=== PATIENT | female | born 1965 | race Two or more races ===

== ENCOUNTER 2018-11-15 08:21 | Inpatient (IN) | payer MEDICAID ==
--- NOTE | 2018-11-09 22:00 | Pre-op HX & Phy Repo 2 SIG ---
DATE OF ADMISSION: 11/15/2018 HISTORY OF PRESENT ILLNESS: The patient is a 53-year-old female in overall good health who presented with left nipple and breast pain. Mammogram revealed a 10 cm span of suspicious calcification starting right behind the nipple-areolar complex extending to the left axilla. Ultrasound revealed a retroareolar dilated duct on the left side. Core biopsy of the left breast upper outer quadrant posteriorly revealed extensive ductal carcinoma in situ. Core biopsy of the left breast retroareolar abnormality also revealed ductal carcinoma in situ. The patient has no prior history of breast disease. No family history of breast cancer. The patient underwent MRI of both breasts with gadolinium and in the left breast, there were 2 breast abnormalities. First, there was diffuse ductal carcinoma in situ at least an 8 cm span from the upper inner quadrant extending to the upper outer quadrant and extending to the nipple. Second, there is a 2.5 cm mass retroareolar likely invasive carcinoma just medial to the core biopsy site that revealed only ductal carcinoma in situ. In addition, enlarged abnormal left axillary lymph nodes were identified. The right breast revealed a small fibroadenoma and a possible sebaceous cyst. After complete discussion, decision has been made to perform left modified radical mastectomy. PAST MEDICAL HISTORY/MEDICATIONS: None. ALLERGIES: Penicillin. OPERATIONS: section and appendectomy. REVIEW OF SYSTEMS: 4, para 4, menopausal since 2008. PHYSICAL EXAMINATION: GENERAL: The patient is 5 feet 2 inches, 121 pounds. HEENT: Within normal limits. LUNGS: Clear. HEART: Regular rhythm. BREASTS: Moderate in size and ptotic. There is no palpable mass on either breast. There is no palpable axillary or supraclavicular lymphadenopathy. ABDOMEN: Soft. PELVIC AND RECTAL: Per primary care. EXTREMITIES: Without edema. NEUROLOGIC: Physiologic. IMPRESSION: 1. Extensive ductal carcinoma in situ, left breast extending from upper inner quadrant to retroareolar extending to the nipple into the upper outer quadrant extending to the axillary tail. 2. Probable invasive carcinoma medial to prior biopsy site 2.5 cm mass retroareolar, left breast. PLAN: Full discussion has been had with the patient regarding the nature of her condition, the nature of the surgery, indications, alternatives, options, and risks including bleeding, infection, injury to adjacent structures or organs, scarring, ischemia of flaps, neuritis or neuralgia, need for drains, need for additional treatment, which could be surgical, chemotherapy, radiation or hormonal blockade or some combination based on final pathology, and there is always the potential for delayed reconstruction. All questions have been answered. The patient understands and agrees to proceed. Sylvester Garvin M.D. DR: JOSÉ MANUEL JOB#: [id number] CC:
[2018-11-15] VITALS (13 sets, daily range): BP systolic 90–165; BP diastolic 49–76
[~2018-11-15] VITALS: Ht 162.6 cm; Wt 54.7 kg
[2018-11-15] MEDS ORDERED: BLOOD PRESSURE PO (09:04)
[2018-11-15] MEDS ORDERED: METFORMIN HCL1000 M1 ORAL (09:04)
--- NOTE | 2018-11-15 09:35 | NUR ---
IV LR WAS STARTED BY FLORES ESPITIA RN. NO S/S OF INFILTRATION.
[2018-11-15] MEDS ORDERED: Bupivacaine 0.5% Inj 30 ml vial INJ ONE (09:40)
[2018-11-15] MEDS ORDERED: Bacitracin 50000 Units Vial ONE (09:40)
[2018-11-15] MEDS ORDERED: Lidocaine 1% 10mg/ml/Epi 0.005mg/ml 30ml vial INJ ONE (09:40)
[2018-11-15] MEDS ORDERED: Bupivacaine w/Epi 0.5% 30ml Vial INJ ONE (09:40)
[2018-11-15] MEDS ORDERED: LR 1000ml 1,000 ML IVLG SCH (10:28)
[2018-11-15] MEDS ORDERED: DiphenhydrAMINE 50mg/ml Inj IVP PRN (10:30)
[2018-11-15] MEDS ORDERED: oxyCODONE HCL/Acetaminophen 5/325mg ORAL PRN (10:30)
[2018-11-15] MEDS ORDERED: Atropine Sulfate 0.4mg/ml inj IVP PRN (10:30)
[2018-11-15] MEDS ORDERED: HYDROcodone/Acetamin 7.5/325 tab ORAL PRN (10:30)
[2018-11-15] MEDS ORDERED: Meperidine 50mg/ml Inj(FOR RIGORS ONLY) IVP PRN (10:30)
[2018-11-15] MEDS ORDERED: Ketorolac 30mg Inj IV PRN ×2 (10:30)
[2018-11-15] MEDS ORDERED: Midazolam 2mg/2ml Inj IVP PRN (10:30)
[2018-11-15] MEDS ORDERED: Hydromorphone 0.5mg/0.5ml inj IVP PRN (10:30)
[2018-11-15] MEDS ORDERED: LORazepam Inj 2mg/ml 1ml IV PRN (10:30)
[2018-11-15] MEDS ORDERED: HYDROcodone/Acetamin 5/325 tab ORAL PRN (10:30)
[2018-11-15] MEDS ORDERED: fentaNYL 100 mcg/2 mL IV PRN (10:30)
[2018-11-15] MEDS ORDERED: Labetalol 5mg/ml 20ml vial IV PRN (10:30)
[2018-11-15] MEDS ORDERED: Metoclopramide 10mg/2ml Inj IVP PRN (10:30)
[2018-11-15] MEDS ORDERED: NS Irrig 1000ml IRRIG ONE ×2 (10:32→12:16)
[2018-11-15] MEDS ORDERED: Propofol 200mg/20ml IV ONE (10:35)
[2018-11-15] MEDS ORDERED: Lidocaine 1% MPF 10mg/ml 5ml ONE ×2 (10:35→13:05)
[2018-11-15] MEDS ORDERED: fentaNYL 100 mcg/2 mL IV ONE (10:36)
[2018-11-15] MEDS ORDERED: Midazolam 2mg/2ml Inj ONE (10:36)
--- NOTE | 2018-11-15 10:36 | Anethesia Preoperative Eval ---
Anesthesia Pre-op PMH/ROS General Date of Evaluation: Nov 15, 2018 Time of Evaluation: 11:56 Anesthesiologist: Nahid ASA Score: ASA 3 Mallampati Score Class I : Soft palate, uvula, fauces, pillars visible Class II: Soft palate, uvula, fauces visible Class III: Soft palate, base of uvula visible Class IV: Only hard plate visible Mallampati Classification: Class II Surgeon: Virgie Diagnosis: Breast CA Surgical Procedure: L Modified Radical Mastectomy Anesthesia History: none Family History: no anesthesia problems Allergies: Coded Allergies: PENICILLINS (Verified Allergy, Unknown, 11/14/18) Medications: see eMAR Patient NPO?: Yes NPO Date: Nov 14, 2018 NPO Time: 2330 Past Medical History Cardiovascular: Reports: HTN Gastrointestinal/Genitourinary: Reports: GERD Endocrine: Reports: DM PSxH Narrative: Appendectomy Anesthesia Pre-op Phys. Exam Physician Exam Last Vital Signs Date Time Temp Pulse Resp B/P (MAP) Pulse Ox O2 Delivery O2 Flow Rate FiO2 11/15/18 09:51 97.4 71 20 164/76 (105) 99 11/15/18 09:05 Room Air Constitutional: NAD Neurologic: CN 2-12 intact Cardiovascular: RRR Respiratory: CTA Gastrointestinal: S/NT/ND Airway Exam Mallampati Score: Class II MO: limited ROM: limited Teeth: missing, intact Anesthesia Pre-op A/P Risk Assessment & Plan Assessment: ASA 3 Plan: GA, SED Status Change Before Surgery: No Pre-Antibiotics Dru Gram Ancef, 500 mg Levofloxacin IV Given Within 1 Hr of Incision: Yes Time Given: 12:11 Stefan Whitfield MD Nov 15, 2018 10:36
[2018-11-15] MEDS ORDERED: Insulin Human Regular 100units/ml 3ml IV SCH (11:15)
--- NOTE | 2018-11-15 12:11 | Pre-Procedure Note/Attestation ---
Pre-Procedure Note/Attestation Complete Prior to Procedure Planned Procedure: left Procedure Narrative: left modified radical mastectomy Indications for Procedure Pre-Operative Diagnosis: extensive DCIS left breast Attestation I attest that I discussed the nature of the procedure; its benefits; risks and complications; and alternatives (and the risks and benefits of such alternatives ), prior to the procedure, with the patient (or the patient's legal passenger relations representative). I attest that, if there was a reasonable possibility of needing a blood transfusion, the patient (or the patient's legal passenger relations representative) was given the [facility] standardized written summary, pursuant to the Hernán Cory Blood Safety Act ([place] Health and Safety Code # 1645, as amended). I attest that I re-evaluated the patient just prior to the surgery and that there has been no change in the patient's H&P, except as documented below: patient now states she takes Metformin and always has elevated blood sugar Sylvester Garvin MD Nov 15, 2018 12:11
--- NOTE | 2018-11-15 12:40 | Immediate Post-Op Evaluation ---
Immediate Post-Op Evalulation Immediate Post-Op Evalulation Procedure: L Modified Radical Mastectomy Date of Evaluation: Nov 15, 2018 Time of Evaluation: 14:26 IV Fluids: 800 LR Blood Products: 0 Estimated Blood Loss: 25 Urinary Output: 0 Blood Pressure Systolic: 90 Blood Pressure Diastolic: 49 Pulse Rate: 54 Respiratory Rate: 16 O2 Sat by Pulse Oximetry: 100 Temperature (Fahrenheit): 97 Pain Score (1-10): 2 Nausea: No Vomiting: No Complications FBS 116 Patient Status: awake, reacts, patent, none Hydration Status: adequate Dru Gram Ancef IV, 500 mg Levofloxacin IV Given Within 1 Hr of Incision: Yes Time Given: 12:11 Stefan Whitfield MD Nov 15, 2018 12:40
--- NOTE | 2018-11-15 14:20 | Brief Operative Note ---
Immediate Post Operative Note Operative Note Pre-op Diagnosis: extensive DCIS left breast Procedure: left modified radical mastectomy Post-op Diagnosis: same Post-op Diagnosis: same as pre-op Findings: consistent w/pre-op dx studies Surgeon: enrico Anesthesiologist: kari Anesthesia: general Specimen: yes - left breast and axillary lymph nodes Complications: none Condition: stable Fluids: see anesthesia record Estimated Blood Loss: minimal Drains: SUSY Implant(s) used?: No Sylvester Garvin MD Nov 15, 2018 14:20
[2018-11-15] MEDS ORDERED: NS Irrig 1000ml ONE (14:26)
[2018-11-15] MEDS ORDERED: Sterile Water Irrig 1000ml IRRIG ONE (14:26)
[2018-11-15] MEDS ORDERED: LR 1000ml ONE (14:26)
--- NOTE | 2018-11-15 15:30 | NUR ---
NURSE NOTES: Received report from Carolyne RN, pt a/a/o x4 laying in bed with no signs of distress or other issues at this time. surgical dressing dry and intact. VS WNL pt on O2 at 2L via n/c. SUSY in place x2 draining well. RN will review orders and will carry on as indicated by MD. all light within reach, bed in lowest position. side rales up x2. pt's sister at bedside. I will f/u as needed.
[2018-11-15] MEDS ORDERED: D5 1/2NS w/KCl 20mEq 1,000 ML IV SCH (17:30)
[2018-11-15] MEDS: HYDROmorphone 1mg/ml Carpuject SUBQ PRN ×2 (17:40→22:02)
[2018-11-15] MEDS: NS w/KCl 20mEq 1000ml 1,000 ML IV SCH (18:44)
[2018-11-15] MEDS: NovoLOG Insulin Flexpen SUBQ SCH ×2 (18:45→21:56)
--- NOTE | 2018-11-15 19:54 | NUR ---
HAND-OFF: Report given to Deborah MCDANIEL. pt in stable condition. - surgical dressing dry and intact - BS: 157, given 4units - RN though pt how to empty SUSY drains however pt needs reinforcement. Incoming nurse is aware and will endorse. I&O's SUSY#1: 20ml SUSY#2: 20ml
--- NOTE | 2018-11-15 19:55 | NUR ---
NURSE NOTES: Received report from JONAS Maxwell. Patient resting, no distress noted. Bed in low position, locked, side rails up x2,call light within reach. Patient no longer feels nausea. Encouraged use of incentive spirometer.
--- NOTE | 2018-11-15 20:19 | NUR ---
NURSE NOTES: Visitors at bedside. No distress noted.
--- NOTE | 2018-11-15 23:00 | Operative Note - Dictated ---
DATE OF OPERATION: 11/15/2018 SURGEON: Sylvester Garvin M.D. DATABASE MARKETING ANALYST SURGEON: None. ANESTHESIOLOGIST: Stefan Whitfield M.D. TYPE OF ANESTHESIA: General. PREOPERATIVE DIAGNOSIS: Left breast extensive diffuse ductal carcinoma in situ with possible retroareolar invasive carcinoma. POSTOPERATIVE DIAGNOSIS: Left breast extensive diffuse ductal carcinoma in situ with possible retroareolar invasive carcinoma. OPERATION PERFORMED: Left modified radical mastectomy. INDICATIONS: The patient underwent imaging revealing a 10 cm span of suspicious calcifications from the upper inner quadrant of the left breast extending behind the nipple areolar complex extending to the left axilla. Core biopsy revealed extensive ductal carcinoma in situ. The patient underwent MRI, which confirmed extensive diffuse ductal carcinoma in situ, but also a likely 2.5 cm retroareolar invasive carcinoma medial to the core biopsy site that revealed only ductal carcinoma in situ in that location. After complete discussion, incision was made to proceed with left modified radical mastectomy because on imaging, the left axillary lymph nodes were somewhat enlarged and somewhat suspicious. DESCRIPTION OF PROCEDURE: The patient was taken to the operating room and under general anesthesia with sequential compression device stockings in place, she was prepped and draped in the usual fashion incorporating the left upper extremity in the sterile field. A transversely oriented Dc incision was made dissecting flaps towards the clavicle, sternum, costal margin, and latissimus dorsi. The breast was resected using cautery and the Thunderbeat electrosurgical device for hemostasis. The lower level axillary node dissection was performed in continuity using the Thunderbeat and the specimen given to pathology after orienting it with suture markers superior and medial and marking the axillary nodes. The field was irrigated and hemostasis carefully achieved with cautery. Through separate stab incisions, two 19 mm round Brandon drains were placed, one under the flaps and one into the axilla. Each was sutured to the skin with 2-0 nylon suture. After ascertaining that hemostasis was secure the incision was closed with interrupted deep dermal subcutaneous 2-0 Vicryl followed by savage. Dry sterile dressings were applied. Final sponge and needle counts were correct. The patient tolerated the procedure well and left the operating room in good condition. Sylvester Garvin M.D. DR: ISSA JOB#: [id number] CC: YOBANY
--- NOTE | 2018-11-15 23:15 | NUR ---
NURSE NOTES: patient sleeping, sister at bedside.
[2018-11-16] VITALS (7 sets, daily range): BP systolic 122–161; BP diastolic 65–89
--- NOTE | 2018-11-16 00:25 | NUR ---
NURSE NOTES: Assisted OOB to void, tolerating fairly well. Voided without difficulty 300 cc clear yellow urine. Explained and showed patient how to empty SUSY drains. Needs reinforcement of teaching as well as return demo. Addendum: 11/16/18 at 0807 by Deborah Renteria RN Patient had a couple of episodes of vomiting, unable to measure as sister cleaned up. See eMAR for N/V med given. Will continue to monitor.
--- NOTE | 2018-11-16 02:25 | NUR ---
NURSE NOTES: Assisted up to bathroom, steady gait. No nausea, no vomiting at this time. Will continue to monitor, plan to call MD if patient continues to have nausea, discussed with charge nurse JONAS Pacheco.
--- NOTE | 2018-11-16 06:50 | NUR ---
NURSE NOTES: Denies any more nausea or vomiting.
[2018-11-16] MEDS: NovoLOG Insulin Flexpen SUBQ SCH ×4 (07:06→20:37)
--- NOTE | 2018-11-16 07:30 | NUR ---
HAND-OFF: Report given to JONAS Waller.
--- NOTE | 2018-11-16 07:30 | NUR ---
NURSE NOTES: HAND-OFF: Report given to JONAS Waller.
[2018-11-16] MEDS: NS w/KCl 20mEq 1000ml 1,000 ML IV SCH ×2 (07:50→11:56)
--- NOTE | 2018-11-16 08:20 | NUR ---
NURSE NOTES: Pt expressed concerned about episode of vomiting, regular diet informed to eat what she felt she could tolerate. Oatmeal suggested. Pt given tea. Drains assessed, sanguinous output approximately 10 cc . Will be given pain medications. Encouraged to move arm, not to guard it.
[2018-11-16] MEDS: metFORMIN 500mg tab ORAL SCH (08:37)
--- NOTE | 2018-11-16 08:38 | 48 Hour Post Anesthesia Eval ---
Post Anesthesia Evaluation Procedure: L Modified Radical Mastectomy Date of Evaluation: Nov 16, 2018 Airway: patent Nausea: Yes Vomiting: Yes Pain Intensity: 2 Hydration Status: adequate Cardiopulmonary Status: at baseline Mental Status/LOC: patient returned to baseline Post-Anesthesia Complications: 0 Follow-up care needed: N/A - further care as per primary team Kerri Jones MD Nov 16, 2018 08:38
[2018-11-16] MEDS: HYDROcodone/Acetamin 5/325 tab ORAL PRN (08:39)
--- NOTE | 2018-11-16 10:21 | NUR ---
NURSE NOTES: PT REFUSED SCD MADE AWARE OF PURPOSE ENCOURAGED TO INCREASE HER WALKING. EDUCATED ON IMPORTANCE OF USING INCENTIVE SPIROMETER. ATE MINIMAL RT TO FEAR OF VOMITING ATE HOT CEREAL TOAST AND TEA. DENIES NAUSEA . HAS NOT HAD EPISODE OF VOMITUS. PER DR SOLIMAN GAVE OKAY TO DC FLUIDS IF PT TOLERATED BREAKFAST
--- NOTE | 2018-11-16 11:32 | NUR ---
NURSE NOTES: pt verbalized she has a cold sensation to her legs encouraged to walk for circulation, or scd, . Stated she walked to the bathroom. R/B explained
--- NOTE | 2018-11-16 11:57 | NUR ---
CASE MANAGEMENT: INITIAL REVIEW 53 YO F PRESENTED TO HOSPITAL FROM HOME CC: BREAST CA PMHx: GASTRITIS SI:LEFT BREAST CA. T 97 HR 54 RR 23 B/P 90/49 SATS 100% ON 6L/SIMPLE MASK NO LABS TODAY IS: KCL IV @ 75 mL/HR METFORMIN PO QD INSULIN ASPART SUBQ AC/HS LEVOFLOXACIN PO Q24H PATIENT ADMITTED TO MED/SURG 11/15/2018 @ 1410 DCP: PATIENT TO BE DISCHARGED TO HOME ONCE MEDICALLY CLEARED. PLAN OF CARE: DATE OF OPERATION: 11/15/2018 PREOPERATIVE DIAGNOSIS: Left breast extensive diffuse ductal carcinoma in situ with possible retroareolar invasive carcinoma. POSTOPERATIVE DIAGNOSIS: Left breast extensive diffuse ductal carcinoma in situ with possible retroareolar invasive carcinoma. OPERATION PERFORMED: Left modified radical mastectomy. Addendum: 11/16/18 at 1440 by Emily Hernandez INTERQUAL MET
--- NOTE | 2018-11-16 14:45 | General Progress Note ---
Progress Note Progress Note AVSS Had multiple episodes of emesis last evening, now mild persistent nausea despite IV Zofran Required Dilaudid SQ for pain, + Elida c/o tingling/pain in legs present for the past 6 months - likely diabetic neuropathy as no edema, dorsalis pedis pulses intact, skin is intact, dry warm Left mastectomy incision clean SUSY drains overnight: 85+50 serosanguinous/bloody Accucheck 255 - getting insulin sliding scale Imp. Post-operative incisional pain and nausea, persistent Neuritis lower extremities Poorly managed diabetes pre-admission Plan: Maintain in hospital Add IV compazine to Zofran CBC,BMP teach care of SUSY drains Sylvester Garvin MD Nov 16, 2018 14:45
[2018-11-16] MEDS: HYDROmorphone 1mg/ml Carpuject SUBQ PRN (14:53)
--- NOTE | 2018-11-16 16:27 | NUR ---
NURSE NOTES: pt currently sleeping. Provided with compazine IV and pain medication. Fell asleep shortly after pain medication was given. Blood sugar remains elevated Dr Garvin made aware pt will need to follow up with her primary DrTracy , so her blood sugar can become stable. blood sugar 255 8 units given at lunch
--- NOTE | 2018-11-16 17:00 | NUR ---
NURSE NOTES: pt experiencing nausea did not eat meal charge nurse informed insulin held Zofran given
--- NOTE | 2018-11-16 19:05 | NUR ---
NURSE NOTES: Dr Garvin phoned because pt did not eat her meal and is experiencing nausea , inquiry for resumption of fluids. Voicemail left for to follow up with Maryann MCDANIEL oncoming nurse
--- NOTE | 2018-11-16 19:25 | NUR ---
NURSE NOTES: Dr Garvin called informed that pt was not able to eat dinner and Zofran was required to be given gave orders 1/2 NS KCL 20meq at 100 cc / hr. Oncoming nurse made aware. Educated pt on how to empty Drain, concerned that she would be discharged with drain. Pt informed about the login sheet for the system so she can take to her appt. Verbalized concerns while Virgie Gutierrez was here earlier in shift in regards to chemotherapy. Message relayed informed that that form of therapy will depend on the results of her biopsy per Dr. Garvin. Pt is pleasant , sister is at bedside, encouraged to walk 2 to refusal of scd. Pt encouraged to follow up with her primary Dr upon discharge for her leg pain and diabetes care. Verbalized understanding . In [place] she stated that her Medical was taken away, therefore she stopped going to the Dr , but will return upon discharge. Call light is in reach.
--- NOTE | 2018-11-16 19:30 | NUR ---
NURSE NOTES: Received report & pt from JONAS Waller. Pt lying in bed, a&ox4, in room air, family member at bedside. No s/s of acute distress & no c/o pain at this time. SUSY drains x2 to bulb suction. Surgical dressing C/D/I. IV site intact. Bed in lowest position, call light within reach. Will continue to monitor.
[2018-11-16] MEDS: 1/2NS w/KCl 20mEq 1000ml 1,000 ML IV SCH (20:05)
[2018-11-17 03:32] VITALS: BP 152/74
--- NOTE | 2018-11-17 04:30 | NUR ---
HAND-OFF: Report given to Giovanny Saini RN re continuity of care. Rounds done. Pt in stable condition.
--- NOTE | 2018-11-17 04:30 | NUR ---
NURSE NOTES: Received report from JONAS Wolf and rounds made. Received pt asleep, no distress noted. Family at bedside. Will continue to monitor.
[2018-11-17] MEDS: NovoLOG Insulin Flexpen SUBQ SCH ×2 (06:29→13:05)
[2018-11-17] MEDS: 1/2NS w/KCl 20mEq 1000ml 1,000 ML IV SCH (06:29)
[2018-11-17 07:00] LABS: BASOPHILS % (AUTO) 0.4 % (0.0-2.0); EOSINOPHILS % (AUTO) 0.9 % (0.0-3.0); HEMATOCRIT 29.7 % (37.0-47.0); HEMOGLOBIN 10.9 G/DL (12.0-16.0); LYMPHOCYTES % (AUTO) 23.6 % (20.0-45.0); MEAN CORPUSCULAR VOLUME 84 FL (80-99); MONOCYTES % (AUTO) 8.7 % (1.0-10.0); NEUTROPHILS % (AUTO) 66.4 % (45.0-75.0); PLATELET COUNT 138 K/UL (150-450); RED BLOOD COUNT 3.54 M/UL (4.20-5.40); RED CELL DISTRIBUTION WIDTH 10.9 % (11.6-14.8); WHITE BLOOD COUNT 4.6 K/UL (4.8-10.8)
[2018-11-17 07:01] LABS: ANION GAP 8 mmol/L (5-15); BLOOD UREA NITROGEN 11 mg/dL (7-18); CALCIUM 8.7 MG/DL (8.5-10.1); CARBON DIOXIDE 28 MMOL/L (21-32); CHLORIDE 104 MMOL/L (98-107); CREATININE 0.8 MG/DL (0.55-1.30); SODIUM 140 MMOL/L (136-145)
--- NOTE | 2018-11-17 07:30 | NUR ---
HAND-OFF: Report given to JONAS Waller. Pt in stable condition.
[2018-11-17 08:00] VITALS: BP 169/83
--- NOTE | 2018-11-17 08:13 | NUR ---
NURSE NOTES: Pt sitting up at bedside . Provided with specimen cups labeled cup 1 and 2 , to facilitate recording, sheet provided with instructions.
--- NOTE | 2018-11-17 08:36 | General Progress Note ---
Progress Note Progress Note AVSS No further nausea. Pain controlled with dilaudis SQ and [place] po. Left mastectomy incision clean, and dry. SUSY drains: overnight 12 hours 30+10 Hgb 10.9 (13.5 pre-op) Glucose 177 Imp. Stable Plan: discharge with SUSY drains in place Rx [place] 5/325 #30 to continue pre-admission metformin and see her PCP for better diabetes control; advised re diet f/u office 11/21 instructions/limitations/supplies discussed/provided Sylvester Garvin MD Nov 17, 2018 08:36
[2018-11-17] MEDS: metFORMIN 500mg tab ORAL SCH (09:31)
[2018-11-17] MEDS: HYDROcodone/Acetamin 5/325 tab ORAL PRN (09:32)
[2018-11-17 11:42] VITALS: BP 138/70
[2018-11-17] MEDS ORDERED: Levofloxacin 500mg tab ORAL SCH (12:00)
--- NOTE | 2018-11-17 15:00 | NUR ---
NURSE NOTES: Pt discharged home. Provided with detailed instructions on how to empty drainage system. Returned demonstration. Supplies provided. Educated on how to record output. Encouraged to follow up with primary for diabetes care. Pt has a follow up with Dr Garvin on Wednesday . Informed not to allow area to get wet. Dr Garvin instructions reinforced. May wash hair in sink, may wash from waist down. Pt also informed that if bandage does not get wet or soiled it can remain till her visit with Dr Garvin. Iv removed. Discharge packet proved to include dm teaching breast cancer information printed in Hungarian, Escorted down stairs with wheelchair
--- NOTE | 2018-11-18 09:24 | Discharge Summary ---
Discharge Summary Discharge Summary _ DATE OF ADMISSION: 11/15/2018 DATE OF DISCHARGE: 11/17/2018 DISCHARGED BY: Dr. Sylvester Garvin HISTORY OF PRESENT ILLNESS: Patient is a 53-year-old female in overall good health, who presented with left nipple and breast pain. Mammogram revealed a 10 cm span of suspicious calcifications starting right behind the nipple-areolar complex extending to the left axilla. Ultrasound revealed a retroareolar dilated duct on the left side. Core biopsy of the left breast upper outer quadrant posteriorly revealed extensive ductal carcinoma in situ. Core biopsy of the left breast retroareolar abnormality also revealed ductal carcinoma in situ. The patient did not have any prior history of breast disease. No family history of breast cancer. The patient underwent MRI of both breasts with gadolinium and in the left breast, there were 2 breast abnormalities. First, there was diffuse ductal carcinoma in situ at least an 8 cm span from the upper inner quadrant extending to the upper outer quadrant and extending to the nipple. Second, there was a 2.5 cm mass retroareolar likely invasive carcinoma just medial to the core biopsy site that revealed only ductal carcinoma in situ. In addition, enlarged abnormal left axillary lymph nodes were identified. The right breast revealed a small fibroadenoma and a possible sebaceous cyst. After complete discussion, decision was made to perform left modified radical mastectomy. BRIEF HOSPITAL COURSE: Patient was admitted on 11/15/2018 and underwent left modified radical mastectomy. The patient tolerated the procedure well and left the operating room in good condition. Postoperatively, she was given postop care. She was placed on SCDs for DVT prophylaxis. She was encouraged use of incentive spirometer. Postop day #1, patient had multiple episodes of emesis and had persistent nausea despite IV Zofran. She required subcutaneous Dilaudid for pain and Parmele. She had tingling/pain in the legs that had been present for 6 months, likely from diabetic neuropathy as there was no edema. Dorsalis pedis pulses were intact. Skin was intact, dry and warm. Left mastectomy incision was clean. SUSY drain had serosanguineous/bloody secretions. Blood glucose was monitored and patient was placed on insulin sliding scale. She was given IV Compazine. She was instructed on care for SUSY drains. Post op day #2, there was no further nausea. Pain was controlled with Dilaudid and Parmele. Left breast mastectomy incision was clean and dry. SUSY drainage decreased. Blood work was stable. Eventually cleared for discharge with SUSY drains in place. To follow-up on 11/21/2018. Instructions/limitations/ supplies were discussed and provided. PREOPERATIVE DIAGNOSIS: Left breast extensive diffuse ductal carcinoma in situ with possible retroareolar invasive carcinoma. POSTOPERATIVE DIAGNOSIS: Left breast extensive diffuse ductal carcinoma in situ with possible retroareolar invasive carcinoma. OPERATION PERFORMED: Left modified radical mastectomy. DISPOSITION: Patient was discharged home. DISCHARGE MEDICATIONS: Refer to Discharge Medication List. DISCHARGE INSTRUCTIONS: Follow-up on 11/21/2018. I have been assigned to complete a discharge summary on this account, I was not involved with the patient's management. Denia Torres NP Nov 18, 2018 09:24
== END 2018-11-17 14:40 | disposition home or self-care (01) | DRG 362 ==
LOC: SUR 08:21 → MERGE 11:30 → 3E 14:10
PROC: 07T60ZZ Resection of Left Axillary Lymphatic, Open Approach (ICD-10-PCS; 2018-11-15)
PROC: 0HTU0ZZ Resection of Left Breast, Open Approach (ICD-10-PCS; principal; 2018-11-15 11:30)
DX: C50.812 Malignant neoplasm of overlapping sites of left female breast (principal); D24.1 Benign neoplasm of right breast; N60.81 Other benign mammary dysplasias of right breast; Z88.0 Allergy status to penicillin; R11.2 Nausea with vomiting, unspecified
CPT/HCPCS: 36415; 71046; 80048; 81003; 82962; 85025; 85610; 85730; 87081; 93005; 94003; 94150; J1815; J2250; J2405; J2765